=== PATIENT | male | born 1965 | race Caucasian/White ===

== ENCOUNTER 2016-06-06 16:43 | Emergency (ER) | payer OTHER, MEDICAID ==
[2016-06-06 17:17] VITALS: TEMP 98.4
[2016-06-06] MEDS ORDERED: Morphine 4 MG/ML VIAL ONE ×2 (17:48→19:12)
[2016-06-06] MEDS ORDERED: niCARdipine IV 25 MG in Sodium Chloride 0.9% 240 ML IV STA (18:25)
[2016-06-06 18:26] LABS: BASO # 0.1 K/uL (0.0-0.2); BASO % 1.3 % (0.0-2.0); EOS # 0.3 K/uL (0.0-0.7); EOS % 2.2 % (0.0-4.0); HEMATOCRIT 40.2 % (35.0-51.0); LYMPH % 17.3 % (20.0-40.0); MEAN CELL VOLUME 87.8 fL (80.0-94.0); MEAN CORPUSCULAR HGB CONC 34.1 g/dL (33.0-37.0); MEAN PLATELET VOLUME 8.6 fL (7.2-11.7); MONO # 1.2 K/uL (0.0-0.8); MONO % 10.6 % (0.0-10.0); RED CELL DISTRIBUTION WIDTH 14.8 % (11.5-14.5); WHITE BLOOD COUNT 11.7 K/uL (4.8-10.8)
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
[2016-06-06 18:30] LABS: POTASSIUM 3.9 mmol/L (3.6-5.2)
--- NOTE | 2016-06-06 18:30 | C.PDOC ---
- HPI Time Seen by Provider: 06/06/16 17:13 Chief Complaint (Nursing): Trauma Past Medical History Vital Signs: Last Vital Signs Temp 98.4 F 06/06/16 17:12 Pulse 96 H 06/06/16 17:12 Resp 20 06/06/16 17:12 BP 235/147 H 06/06/16 17:12 Pulse Ox 100 06/06/16 17:12 - Medical History PMH: HTN Family History: States: Unknown Family Hx - Social History Hx Alcohol Use: No Hx Substance Use: No (former) - Immunization History Hx Tetanus Toxoid Vaccination: No Hx Influenza Vaccination: Yes Hx Pneumococcal Vaccination: No ED Course And Treatment O2 Sat by Pulse Oximetry: 100
[2016-06-06 18:33] LABS: BILIRUBIN,TOTAL 0.7 mg/dL (0.2-1.3); CALCIUM 8.6 mg/dl (8.6-10.4); TOTAL PROTEIN 8.3 g/dL (6.3-8.3)
[2016-06-06 18:36] LABS: INR 0.9
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
[2016-06-06 19:15] VITALS: BP 180/105; PULSE 108; RESP 17
[2016-06-06] MEDS ORDERED: Labetalol 25mg/5ml Syringe IV STA (19:22)
[2016-06-06] MEDS ORDERED: Labetalol 300 MG in Dextrose 5% In Water 240 ML IV STA (19:23)
[2016-06-06 19:26] VITALS: O2SAT 100
[2016-06-06] MEDS ORDERED: Labetalol 25mg/5ml Syringe ONE (19:27)
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
== END 2016-06-06 20:13 | disposition short-term general hospital (02) ==
LOC: C.ER 16:43
DX: S06.2X0A Diffuse traumatic brain injury without loss of consciousness, initial encounter (principal); M25.471 Effusion, right ankle; V03.10XA Pedestrian on foot injured in collision with car, pick-up truck or van in traffic accident, initial encounter; Y92.410 Unspecified street and highway as the place of occurrence of the external cause
CPT/HCPCS: 70450; 71010; 72125; 73610; 80053; 82948; 85025; 85610; 85730; 96374; 96375; 96376; 99285; J2270; J7060